=== PATIENT | female | born 1980 | race Caucasian/White ===

== ENCOUNTER 2025-06-01 14:20 | Emergency (ER) | payer BC, SELFPAY ==
[2025-06-01 14:22] VITALS: BP 128/89; PULSE 73; RESP 16; TEMP 35.8; O2SAT 98
--- NOTE | 2025-06-01 14:39 | RAD_ITS ---
EXAM: XR Left Knee Complete, 4 or More Views CLINICAL INDICATION: INJURY/PAIN TECHNIQUE: Four or more views of the left knee. COMPARISON: No relevant prior studies available. FINDINGS: BONES/JOINTS: Unremarkable. No dislocation. No acute fracture. SOFT TISSUES: Soft tissue swelling. RAD/Knee 4 or More Views IMPRESSION: 1. No acute fracture. 2. Soft tissue swelling. [facility]
--- NOTE | 2025-06-01 14:40 | EDS_ITS ---
HPI History of Present Illness Chief Complaint: Lower Extremity Injury Detail of Chief Complaint: Left knee pain Informant: patient Onset/Context/Timing Onset: Days (7-14) Context: Sudden Onset Timing: Continuous Quality: Pain that she locates anterior medial aspect of the left knee Location: Anterior medial left knee Current Severity: Mild Maximum Severity: Moderate Worsened by: Weightbearing Relieved by: Rest Associated Symptoms Associated Symptoms: None Narrative Narrative: Patient is a 44-year-old woman. She states approximate month ago her right knee was hurting. Her right knee presently does not hurt. Does not complain of her left knee hurting for the past 1 to 2 weeks. She localizes the pain to the anterior medial aspect of the left knee. There is no history of direct trauma. She is uncertain whether she may have twisted it. The pain is worse with weightbearing. Patient has no other symptoms. Review of records indicates she has no history of gout or pseudogout. Prior similar symptoms: No Recent Illness/Hospitalization: No PFSH PFSH Allergy/AdvReac Type Severity Reaction Status Date / Time Sulfa (Sulfonamide Allergy Mild Hives Verified 06/01/25 14:21 Antibiotics) (sulfa drugs) Social History (Updated 06/01/25 @ 14:[address] West Lyman MD) household members: spouse Smoking Status: Never smoker ROS ROS ED Constitutional Constitutional ED: Denies chills, fever(s) or subjective Musculoskeletal Musculoskeletal: Reports other Details: HPI narrative ; Denies arthralgias, back pain, myalgias or neck pain Integumentary Denies rash Neurologic Neurologic: Denies paresthesias or weakness Hematologic/Lymphatic Hematologic/Lymphatic: Reports systems reviewed and no addt'l complaints, except as documented EXAM Physical Exam Const Vital Signs: 06/01/25 14:22 Temperature 96.4 F L Temperature Source Temporal Pulse Rate 73 Respiratory Rate 16 Blood Pressure 128/89 H Blood Pressure Mean 102 Pulse Ox 98 Oxygen Delivery Method Room Air Positive well nourished and well developed Constitutional Narrative: Patient has an elevated BMI. General Appearance ED: well developed and NAD; Negative for cyanotic, diaphoretic or pallor HEENT HEENT Narrative: Head is atraumatic and normocephalic. Ears normal Eyes PERRL and EOMs intact bilaterally General Eye ED: Negative for scleral icterus Resp normal respiratory effort Cardio regular rate and regular rhythm Extremity normal to inspection Extremity Narrative: There is no swelling to left knee. The patella is not ballotable. There is no effusion. There is no pain with varus valgus stress testing. She has negative Maddi's test. Modified Estela's test was negative. There is no pain or fullness in the popliteal fossa. DP and PT pulse are palpable. Neuro oriented x3 and CN's II-XII intact bilaterally Sensorium / Orientation: alert Psych mental status grossly normal Skin no rashes or lesions noted, no wounds and skin turgor normal General Skin Exam: Negative for jaundice or pallor MDM MDM MDM Narrative Medical decision making narrative: Pain with no history of trauma. Patient does have an elevated BMI. Suspect this represents osteoarthritis. X-ray was obtained to evaluate for any bony abnormality. There is no concern for gout or pseudogout. With no history of trauma fractures not likely unless it is pathologic. 1 would also expect an effusion. Radiography Chest X-Ray - ED: Read by ED Physician (4 view x-ray of the left knee reveals no fracture, subluxation or dislocation. There is no effusion noted. There is a sesamoid bone noted. There is slight asymmetry of the joint.) Diagnostic Testing: Clinical Impression(s) from Imaging Studies Knee X-Ray 06/01/25 14:39 IMPRESSION: 1. No acute fracture. 2. Soft tissue swelling. Reading Location: [facility] Treatment and Re-Evaluation :: Franki patient has early osteo arthritis due to her body habitus. Will recommend NSAIDs. She was referred to Dr. Brown. NSAIDs were recommended since she has no contraindication. Discharge Plan Triage Chief Complaint: Lower Extremity Injury ED Provider: West Lyman Dx/Rx/DC Orders Clinical Impression: Acute pain of left knee, Osteoarthritis of left knee, Adult BMI 30.0-30.9 kg/sq m Instructions: ED Osteoarthritis Primary Care Provider: [facility] Doctor,Out of Referrals: Derrick Brown MD [Med Staff - Active Staff] - 1 Week NOT,DEFINED [Non-Staff] - Activity Restrictions/Additional Instructions: 1. Take 4 ibuprofen tablets every 8 hours for the next 5 to 7 days. 2. Recommend follow-up with Dr. Brown. Print Language: Bengali Disposition Disposition: Home, Self Care
[2025-06-01 15:14] VITALS: BP 122/84; PULSE 71; RESP 16; TEMP 36.1; O2SAT 98
== END 2025-06-01 15:14 | disposition home or self-care (01) ==
PROVIDERS: Emergency Provider Emergency Medicine; Referring Provider Emergency Medicine; Visit Provider Emergency Medicine
DX: M17.12 Unilateral primary osteoarthritis, left knee (principal); M25.562 Pain in left knee
CPT/HCPCS: 73564; 99282